=== PATIENT | female | born 1965 | race Caucasian/White ===

== ENCOUNTER → 2017-09-19 | Outpatient (CLI) | payer BC ==
--- NOTE | 2017-09-20 12:08 | MM ---
Reason for exam: screening (asymptomatic). Last mammogram was performed 1 year and 4 months ago. History: Patient is postmenopausal. Family history of breast cancer in mother at age 66. Physical Findings: A clinical breast exam by your physician is recommended on an annual basis and results should be correlated with mammographic findings. MG Screening Mammo w CAD Bilateral CC and MLO view(s) were taken. Prior study comparison: June 01, 2016, bilateral MG 3d screening mammo w/cad. July 01, 2014, bilateral MG screening mammo w CAD. There are scattered fibroglandular densities. No suspicious abnormality. No significant changes when compared with prior studies. ASSESSMENT: Negative, BI-RAD 1 RECOMMENDATION: Routine screening mammogram of both breasts in 1 year.
== END | disposition home or self-care (01) ==
LOC: RADMAMWWP 07:02
PROVIDERS: ATTEND Family Medicine
DX: Z12.31 Encounter for screening mammogram for malignant neoplasm of breast (principal)
CPT/HCPCS: 77067

== ENCOUNTER → 2018-03-16 | Outpatient (CLI) | payer BC ==
[2018-03-16 08:32] LABS: Basophils # (A) 0.1 k/uL (0-0.2); Basophils % (A) 1 %; Eosinophils # (A) 0.1 k/uL (0-0.7); Eosinophils % (A) 2 %; HCT 47.6 % (34.0-46.0); HGB 15.1 gm/dL (11.4-16.0); Lymphocytes # (A) 1.6 k/uL (1.0-4.8); Lymphocytes % (A) 33 %; MCHC 31.8 g/dL (31.0-37.0); MCV 97.5 fL (80.0-100.0); Mean Platelet Volume 7.8; Monocytes # (A) 0.3 k/uL (0-1.0); Monocytes % (A) 6 %; Neutrophils # (A) 2.8 k/uL (1.3-7.7); Neutrophils % (A) 56 %; Platelet Count 236 k/uL (150-450); RBC 4.88 m/uL (3.80-5.40); RDW 13.5 % (11.5-15.5); WBC 4.9 k/uL (3.8-10.6)
[2018-03-16 08:51] LABS: Calcium 9.3 mg/dL (8.4-10.2)
== END | disposition home or self-care (01) ==
LOC: LABWHC1 07:16
PROVIDERS: ATTEND Psychiatry & Neurology Neurology
DX: Z51.81 Encounter for therapeutic drug level monitoring (principal); Z79.899 Other long term (current) drug therapy
CPT/HCPCS: 36415; 80048; 85025

== ENCOUNTER → 2018-05-26 | Outpatient (CLI) | payer BC ==
--- NOTE | 2018-05-26 15:48 | XR ---
EXAMINATION TYPE: XR abdomen 2V DATE OF EXAM: 05/26/2018 3:38 PM CLINICAL HISTORY: Abdominal pain and diarrhea TECHNIQUE: Upright and supine images of the abdomen were obtained. COMPARISON: CT abdomen and pelvis dated 12/03/2015. FINDINGS: There are scattered colonic air-fluid levels within a nondilated colon compatible with this patient's history of colonic malabsorption/diarrhea. Punctate calcifications clustered within the ri ght lower quadrant when correlated with the prior CT are likely within bowel related to inspissated d ebris. Partial colonic resection surgical sutures are noted in the low pelvis. Cholecystectomy clips reside within the right upper quadrant. There is a mild dextroscoliotic curvature of the upper lumbar spine. No pneumoperitoneum is seen. Osseous structures are grossly intact. IMPRESSION: Scattered air-fluid levels within the nondilated colon are indicative of colonic malabsor ption/diarrhea. Nonobstructive bowel gas pattern.
== END | disposition home or self-care (01) ==
LOC: RADXRMAIN 15:01
PROVIDERS: ATTEND Physician Assistant Medical
DX: R19.7 Diarrhea, unspecified (principal); R53.83 Other fatigue; R10.31 Right lower quadrant pain; R14.3 Flatulence
CPT/HCPCS: 74019; 87045; 87046

== ENCOUNTER → 2018-06-02 | Outpatient (CLI) | payer BC ==
[2018-06-02 14:30] LABS: Basophils % (A) 1 %; Eosinophils # (A) 0.1 k/uL (0-0.7); Eosinophils % (A) 2 %; HCT 40.7 % (34.0-46.0); HGB 13.5 gm/dL (11.4-16.0); Lymphocytes # (A) 1.5 k/uL (1.0-4.8); Lymphocytes % (A) 31 %; MCHC 33.1 g/dL (31.0-37.0); MCV 93.9 fL (80.0-100.0); Mean Platelet Volume 7.8; Monocytes # (A) 0.3 k/uL (0-1.0); Monocytes % (A) 6 %; Neutrophils # (A) 2.8 k/uL (1.3-7.7); Neutrophils % (A) 59 %; Platelet Count 234 k/uL (150-450); RBC 4.34 m/uL (3.80-5.40); WBC 4.8 k/uL (3.8-10.6)
[2018-06-02 14:41] LABS: Calcium 9.4 mg/dL (8.4-10.2); Potassium 4.8 mmol/L (3.5-5.1); Total Bilirubin 0.4 mg/dL (0.2-1.3); Total Protein 6.3 g/dL (6.3-8.2)
--- NOTE | 2018-06-02 16:08 | CT ---
EXAMINATION TYPE: CT abdomen pelvis w con DATE OF EXAM: 06/02/2018 COMPARISON: Prior CT abdomen pelvis 12/03/2015 HISTORY: RLQ pain and diarrhea X [address] DLP: 763.7 mGycm Automated exposure control for dose reduction was used. TECHNIQUE: Helical acquisition of images from the lung bases through the pelvis have been completed. CONTRAST: Performed with Oral Contrast and with IV Contrast, patient injected with 100 mL of Isovue 300. FINDINGS: LUNG BASES: No significant abnormality is appreciated. AORTA: No significant abnormality is appreciated. LIVER/GB: Patient is post cholecystectomy. Liver shows no mass. Liver shows low attenuation possibly due to hepatic steatosis. PANCREAS: No significant abnormality is seen. SPLEEN: No significant abnormality is seen. ADRENALS: No significant abnormality is seen. KIDNEYS: No significant abnormality is seen. REPRODUCTIVE ORGANS: Uterus and right ovary not seen, left ovary shows a normal appearance BOWEL: Postop changes at the rectosigmoid colon. Right colon shows some wall thickening. Axial image s #[id number] show a questionable tethered appearance to the lateral wall of an ileal loop corresponding to coronal image 41 and 42. There may be a small appendix at this level with possible small appendicoli th on axial image 69. No significant inflammatory change however. FREE AIR: No Free Air visible. ASCITES: None visible. PELVIC ADENOPATHY: None visualized. RETROPERITONEAL ADENOPATHY: No Retroperitoneal Adenopathy visible. URINARY BLADDER: No significant abnormality is seen. OSSEOUS STRUCTURES: No significant abnormality is seen. IMPRESSION: FINDINGS SUGGEST COLITIS. DIFFICULT TO EXCLUDE A TETHERED APPEARANCE EXTENDING FROM THE LEVEL OF THE APPENDIX TO AN ILEAL LOOP DESCRIBED POSSIBLY DUE TO ADHESIVE DISEASE. POSTOP CHANGES.
== END | disposition home or self-care (01) ==
LOC: RADCTMAIN 13:25
PROVIDERS: ATTEND Family Medicine
DX: R10.31 Right lower quadrant pain (principal); R19.4 Change in bowel habit; R19.7 Diarrhea, unspecified; Z90.49 Acquired absence of other specified parts of digestive tract
CPT/HCPCS: 80053; 85025; 74177; Q9967

== ENCOUNTER → 2018-07-24 | Outpatient (CLI) | payer BC ==
--- NOTE | 2018-07-24 15:48 | XR ---
EXAMINATION TYPE: XR nasal bone DATE OF EXAM: 07/24/2018 COMPARISON: Facial bones complete November 01, 2013 HISTORY: Acute nasal bone trauma, pain after injury. TECHNIQUE: Complete nasal bone with both lateral projections on frontal projection acquired. FINDINGS: Age-indeterminate fracture through the nasal bridge is identified on lateral view without s ignificant soft tissue swelling. Nasal septum remains deviated to right of midline. Visualized parana griffin sinuses are clear. IMPRESSION: Age-indeterminate but favor old displaced fracture through the nasal bridge.
== END | disposition home or self-care (01) ==
LOC: RADXRMAIN 15:19
PROVIDERS: ATTEND Otolaryngology
DX: G89.11 Acute pain due to trauma (principal)
CPT/HCPCS: 70160

== ENCOUNTER → 2018-11-14 | Outpatient (CLI) | payer BC ==
--- NOTE | 2018-11-16 10:33 | MM ---
Reason for exam: screening (asymptomatic). Last mammogram was performed 1 year and 2 months ago. History: Patient is postmenopausal. Family history of breast cancer in mother at age 66. Physical Findings: A clinical breast exam by your physician is recommended on an annual basis and results should be correlated with mammographic findings. MG Screening Mammo w CAD Bilateral CC and MLO view(s) were taken. Prior study comparison: September 19, 2017, bilateral MG screening mammo w CAD. June 01, 2016, bilateral MG 3d screening mammo w/cad. There are scattered fibroglandular densities. Focal asymmetry left upper outer quadrant. No significant changes when compared with prior studies. ASSESSMENT: Benign, BI-RAD 2 RECOMMENDATION: Routine screening mammogram of both breasts in 1 year.
== END | disposition home or self-care (01) ==
LOC: RADMAMWWP 07:55
PROVIDERS: ATTEND Family Medicine
DX: Z12.31 Encounter for screening mammogram for malignant neoplasm of breast (principal)
CPT/HCPCS: 77067

== ENCOUNTER → 2019-12-28 | Outpatient (CLI) | payer BC ==
--- NOTE | 2020-01-01 08:59 | CT ---
EXAMINATION TYPE: CT heart w calcium score DATE OF EXAM: 12/28/2019 COMPARISON: None HISTORY: Screening for cardiovascular disorder. 213.9 CT DLP: 44.8 mGycm Automated exposure control for dose reduction was used. CT CALCIUM SCORING Coronary calcium is a marker for plaque (fatty deposits) in a blood vessel or atherosclerosis (harden ing of the arteries). The presence and amount of calcium detected in a coronary artery by the CT sca n, indicates the presence and amount of atherosclerotic plaque. These calcium deposits appear years before the development of heart disease symptoms such as chest pain and shortness of breath. A calcium score is computed for each of the coronary arteries based upon the volume and density of th e calcium deposits. This can be referred to as your calcified plaque burden. It does not correspond directly to the percentage of narrowing in the artery but does correlate with the severity of the un derlying coronary atherosclerosis. PROCEDURE TECHNIQUE - Prospective Gating was used. Slice thickness: 3mm. Density threshold (HU): 130, Pixel threshold: 3, Algorithm: discrete. RESULTS Region: LM Calcium Score ([place]): 0 Volume (mm3): Mass (g): Region: RCA Calcium Score ([place]): 0 Volume (mm3): Mass (g): Region: LAD Calcium Score ([place]): 0 Volume (mm3): Mass (g): Region: CX Calcium Score ([place]): 0 Volume (mm3): Mass (g): Region: PDA Calcium Score ([place]): 0 Volume (mm3): Mass (g): Total: Calcium Score ([place]): 0 Volume (mm3): Mass (g): TOTAL CALCIUM SCORE: 0 IMPRESSION: Calcium Score: 0 Implication: No identifiable plaque. Risk of Coronary Artery Disease: Very low CALCIUM SCORE IMPLICATION RISK OF C ORONARY ARTERY DISEASE 0 No identifiable plaque Very low, generally less than 5% 1-10 Minimal identifiable plaque Very unlikely, less than 10% 11-100 Definite, at least mild atherosclerotic plaque Mild or m inimal coronary narrowings likely 101-400 Definite, at least moderate atherosclerotic plaque Mild coronary ar jud disease highly likely, significant narrowing possible 401 or Higher Extensive atherosclerotic plaque High lik elihood of at least one significant coronary narrowing
== END | disposition home or self-care (01) ==
LOC: RADCTMAIN 16:44
PROVIDERS: ATTEND Family Medicine
DX: I10 Essential (primary) hypertension (principal); E78.5 Hyperlipidemia, unspecified; Z82.49 Family history of ischemic heart disease and other diseases of the circulatory system
CPT/HCPCS: 75571

== ENCOUNTER → 2020-01-31 | Outpatient (CLI) | payer BC ==
--- NOTE | 2020-02-01 08:49 | MM ---
Reason for exam: screening (asymptomatic). Last mammogram was performed 1 year and 3 months ago. History: Patient is postmenopausal. Family history of breast cancer in mother at age 66. Physical Findings: A clinical breast exam by your physician is recommended on an annual basis and results should be correlated with mammographic findings. MG Screening Mammo w CAD Bilateral CC and MLO view(s) were taken. Prior study comparison: November 14, 2018, bilateral MG screening mammo w CAD. September 19, 2017, bilateral MG screening mammo w CAD. There are scattered fibroglandular densities. There is chronic nodularity in the lerft breast. No significant changes when compared with prior studies. ASSESSMENT: Negative, BI-RAD 1 RECOMMENDATION: Routine screening mammogram of both breasts in 1 year.
== END | disposition home or self-care (01) ==
LOC: RADMAMWWP 07:19
PROVIDERS: ATTEND Family Medicine
DX: Z12.31 Encounter for screening mammogram for malignant neoplasm of breast (principal)
CPT/HCPCS: 77067

== ENCOUNTER → 2022-05-21 | Outpatient (CLI) | payer BC ==
[2022-05-21 15:12] VITALS: BP 152/96; PULSE 88; RESP 16; TEMP 97.6
--- NOTE | 2022-05-21 15:52 | P.GSHP ---
History of Present Illness H&P Date: 05/21/22 Chief Complaint: intraductal papilloma left breast 3:30 Oriana is a 57 year old white female who underwent an untrasound guided core biopsy on February 2022 of the left breast at 3:30 on 04-06-22 which revealed an intraductal papilloma. She had a bilateral screening mammogram performed March 30 2022, which led to an ultrasound guided core biopsy on 04-06-22. Patient did not feel any lumps masses or nodules of concern in either breast. She is not complaining of any nipple discharge or skin changes. She had not had any surgery on her breast in the past. Caffiene: 2 cups coffee/day nicotine: none stopped 20 years ago; used to smoke 1/2 PPD chocolate: weekly BCP: 4-5 years in the past Family History: mother: breast cancer at 65 Hormonal History: menarche: 10 , breast fed: yes, age at first : 20 menopause: hysterectomy in her 30's; left 1 ovary Surgical History: hysterectomy colon Resection gallbladder sinus surgery Medical History: HTN migraine Social History: nicotine: as above alcohol: stopped drinking beer drugs: none - Constitutional Constitutional: Denies chills, Denies fever - EENT Eyes: denies blurred vision, denies pain Ears: deny: decreased hearing, tinnitus Ears, nose, mouth and throat: Denies headache, Denies sore throat - Breasts Breasts: bilateral: as per HPI - Cardiovascular Cardiovascular: Denies chest pain, Denies shortness of breath - Respiratory Respiratory: Denies cough, Denies 7 - Gastrointestinal Gastrointestinal: Reports as per HPI - Genitourinary (Female) Genitourinary: Denies dysuria, Denies hematuria - Menstruation Menstruation: Reports post hysterectomy - Musculoskeletal Musculoskeletal: Denies myalgias - Integumentary Integumentary: Denies pruritus, Denies rash - Neurological Neurological: Denies numbness, Denies weakness - Psychiatric Psychiatric: Denies anxiety, Denies depression - Endocrine Endocrine: Denies fatigue, Denies weight change - Hematologic/Lymphatic Comment: none - Allergic/Immunologic Allergic/Immunologic: Reports seasonal allergies Past Medical History Past Medical History: Asthma, GERD/Reflux, Hypertension Additional Past Medical History / Comment(s): migraines, KIDNEY STONE History of Any Multi-Drug Resistant Organisms: None Reported Past Surgical History: Appendectomy, Bowel Resection, Hysterectomy Additional Past Surgical History / Comment(s): NASAL SURGERY Past Anesthesia/Blood Transfusion Reactions: No Reported Reaction Past Psychological History: No Psychological Hx Reported Smoking Status: Former smoker Past Alcohol Use History: Occasional Past Drug Use History: None Reported - Past Family History Mother Family Medical History: Cancer Medications and Allergies Home Medications Medication Instructions Recorded Confirmed Type Cyclobenzaprine [Flexeril] 10 mg PO HS 11/06/13 05/21/22 History Fluticasone Propionate [Flovent 1 puff INHALATION DAILY 11/06/13 05/21/22 History Hfa 220 mcg] Cetirizine HCl 1 tab PO DAILY 11/08/13 05/21/22 History Multivitamins, Thera [Theragran] 1 each PO DAILY 02/19/15 05/21/22 History [place]-3 Fatty Acids/Fish Oil [Fish 1 each PO DAILY 02/19/15 05/21/22 History Oil 1,000 mg Softgel] Omeprazole [PriLOSEC] 20 mg PO AC-BRKFST 02/19/15 05/21/22 History Topiramate [Topamax] 50 mg PO BID 02/19/15 05/21/22 History lisinopriL [Zestril] 10 mg PO DAILY 02/19/15 05/21/22 History Allergies Allergy/AdvReac Type Severity Reaction Status Date / Time No Known Allergies Allergy Verified 05/21/22 15:13 Surgical - Exam Vital Signs Temp Pulse Resp BP Pulse Ox 97.6 F 88 16 152/96 100 05/21/22 15:10 05/21/22 15:10 05/21/22 15:10 05/21/22 15:10 05/21/22 15:10 BMi: 26.6 - General moderate distress - Eyes normal ocular movement - ENT no hearing loss - Neck trachea midline - Respiratory normal respiratory effort, clear to auscultation - Cardiovascular Rhythm: regular Heart Sounds: normal: S1, S2 - Abdomen Abdomen: soft, non tender, no guarding, no rigid, no rebound - Integumentary normal turgor - Neurologic no disoriented, no combative - Musculoskeletal normal gait, normal posture - Psychiatric oriented to time, oriented to person, oriented to place, speech is normal, memory intact Breast Exam: BRA: 38DD inspection: bilateral grade 2/3 ptosis palpation: right breast: multipositional exam no dominate masses or nodules of concern; dark nevis right breast right axilla: no adenopathy of concern left breast: multipositional exam no dominate masses or nodules of concern; Results Mammogram and ultrasound results reviewed Assessment and Plan Assessment: Impression: Intraductal papilloma left breast 3:30 position Fibrocystic breast changes Dark nevus of right breast 9 o'clock position Plan: Needle localization excisional lumpectomy left breast, possible optical plastic tissue transfer, excision of dark nevus right breast Risk and benefits of the procedure discussed with the patient. She understands and wishes to proceed. This will be scheduled in the near future. CC: DR. Don Sparks
== END ==
LOC: WWCWWP 14:51
PROVIDERS: ATTEND Surgery
DX: D05.12 Intraductal carcinoma in situ of left breast (principal); N60.19 Diffuse cystic mastopathy of unspecified breast; D22.5 Melanocytic nevi of trunk; Z87.891 Personal history of nicotine dependence

== ENCOUNTER → 2022-06-25 | Outpatient (CLI) | payer BC ==
[2022-06-25 15:43] VITALS: BP 136/83; PULSE 96; RESP 16
--- NOTE | 2022-06-25 16:51 | P.PN ---
Subjective Progress Note Date: 06/25/22 Principal diagnosis: intraductal papilloma left breast 3:30 Oriana is a 57 year old white female who underwent an untrasound guided core biopsy on February 2022 of the left breast at 3:30 on 04-06-22 which revealed an intraductal papilloma. She had a bilateral screening mammogram performed March 30 2022, which led to an ultrasound guided core biopsy on 04-06-22. Patient did not feel any lumps masses or nodules of concern in either breast. She is not complaining of any nipple discharge or skin changes. She had not had any surgery on her breast in the past. Mammogram reviewed with radiology. Caffiene: 2 cups coffee/day nicotine: none stopped 20 years ago; used to smoke 1/2 PPD chocolate: weekly BCP: 4-5 years in the past Family History: mother: breast cancer at 65 Hormonal History: menarche: 10 , breast fed: yes, age at first : 20 menopause: hysterectomy in her 30's; left 1 ovary Surgical History: hysterectomy colon Resection gallbladder sinus surgery Medical History: HTN migraine Social History: nicotine: as above alcohol: stopped drinking beer drugs: none - Constitutional Constitutional: Denies chills, Denies fever - EENT Eyes: denies blurred vision, denies pain Ears: deny: decreased hearing, tinnitus Ears, nose, mouth and throat: Denies headache, Denies sore throat - Breasts Breasts: bilateral: as per HPI - Cardiovascular Cardiovascular: Denies chest pain, Denies shortness of breath - Respiratory Respiratory: Denies cough - Gastrointestinal Gastrointestinal: Reports as per HPI - Genitourinary (Female) Genitourinary: Denies dysuria, Denies hematuria - Menstruation Menstruation: Reports post hysterectomy - Musculoskeletal Musculoskeletal: Denies myalgias - Integumentary Integumentary: Denies pruritus, Denies rash - Neurological Neurological: Denies numbness, Denies weakness - Psychiatric Psychiatric: Denies anxiety, Denies depression - Endocrine Endocrine: Denies fatigue, Denies weight change - Hematologic/Lymphatic Comment: none - Allergic/Immunologic Allergic/Immunologic: Reports seasonal allergies Past Medical History Past Medical History: Asthma, GERD/Reflux, Hypertension Additional Past Medical History / Comment(s): migraines, KIDNEY STONE History of Any Multi-Drug Resistant Organisms: None Reported Past Surgical History: Appendectomy, Bowel Resection, Hysterectomy Additional Past Surgical History / Comment(s): NASAL SURGERY Past Anesthesia/Blood Transfusion Reactions: No Reported Reaction Past Psychological History: No Psychological Hx Reported Smoking Status: Former smoker Past Alcohol Use History: Occasional Past Drug Use History: None Reported - Past Family History Mother Family Medical History: Cancer Medications and Allergies Home Medications Medication Instructions Recorded Confirmed Type Cyclobenzaprine [Flexeril] 10 mg PO HS 11/06/13 05/21/22 History Fluticasone Propionate [Flovent 1 puff INHALATION DAILY 11/06/13 05/21/22 History Hfa 220 mcg] Cetirizine HCl 1 tab PO DAILY 11/08/13 05/21/22 History Multivitamins, Thera [Theragran] 1 each PO DAILY 02/19/15 05/21/22 History [place]-3 Fatty Acids/Fish Oil [Fish 1 each PO DAILY 02/19/15 05/21/22 History Oil 1,000 mg Softgel] Omeprazole [PriLOSEC] 20 mg PO AC-BRKFST 02/19/15 05/21/22 History Topiramate [Topamax] 50 mg PO BID 02/19/15 05/21/22 History lisinopriL [Zestril] 10 mg PO DAILY 02/19/15 05/21/22 History Allergies Allergy/AdvReac Type Severity Reaction Status Date / Time No Known Allergies Allergy Verified 05/21/22 15:13 Objective - Vital Signs Vital signs: Vital Signs Temp Pulse 96 06/25/22 15:39 Resp 16 06/25/22 15:39 BP 136/83 06/25/22 15:39 Pulse Ox 98 06/25/22 15:39 FiO2 Intake & Output 06/24/22 06/25/22 06/25/22 18:59 06:59 18:59 Weight 71.668 kg - Constitutional General appearance: Present: cooperative - EENT ENT: Present: hearing grossly normal - Neck Neck: Present: normal ROM - Respiratory Respiratory: bilateral: CTA - Cardiovascular Rhythm: regular Heart sounds: normal: S1, S2 - Gastrointestinal General gastrointestinal: Present: soft - Integumentary Integumentary: Present: normal turgor - Musculoskeletal Musculoskeletal: Present: gait normal - Psychiatric Psychiatric: Present: A&O x's 3, appropriate affect, intact judgment & insight - Additional findings Additional findings: Breast Exam: BRA: 38DD inspection: bilateral grade 2/3 ptosis palpation: right breast: multipositional exam no dominate masses or nodules of concern; dark nevis right breast right axilla: no adenopathy of concern left breast: multipositional exam no dominate masses or nodules of concern; Assessment and Plan Assessment: Impression: Intraductal papilloma left breast 3:30 position Fibrocystic breast changes Dark nevus of right breast 9 o'clock position Plan: Needle localization excisional lumpectomy left breast, possible onco-plastic tissue transfer, excision of dark nevus right breast Risk and benefits of the procedure discussed with the patient. She understands and wishes to proceed. This will be scheduled in the near future. No mastopexy incision. [place] prescribed CC: DR. Don Sparks
== END ==
LOC: WWCWWP 15:08
PROVIDERS: ATTEND Surgery
DX: D24.2 Benign neoplasm of left breast (principal); J45.909 Unspecified asthma, uncomplicated; K21.9 Gastro-esophageal reflux disease without esophagitis; I10 Essential (primary) hypertension; Z87.891 Personal history of nicotine dependence; Z79.51 Long term (current) use of inhaled steroids

== ENCOUNTER 2022-07-13 11:53 | Day surgery (SDC) | payer BC ==
[~2022-07-13 11:53] MED LIST: HEPARIN SODIUM,PORCINE/PF 5,000 UNIT/0.5 ML SYRINGE SQ PRN; Pre Op ABX Message 1 EACH MISC MISCELLANE ONE
[2022-07-13] MEDS ORDERED: HYDROmorphone 0.5 MG/0.5 ML SYRINGE IVP PRN (12:21)
[2022-07-13] MEDS ORDERED: SCOPOLAMINE 1 MG/72 HR PATCH TRANSDERM ONE (12:21)
[2022-07-13] MEDS ORDERED: MIDAZOLAM 2 MG/2 ML VIAL IV PRN (12:21)
[2022-07-13] MEDS ORDERED: ONDANSETRON 4 MG/2 ML VIAL IVP ONE ×2 (12:21→18:21)
[2022-07-13] MEDS ORDERED: DEXAMETHASONE SOD PHOSPHATE 4 MG/ML 1 ML VIAL IV ONE (12:21)
[2022-07-13] MEDS ORDERED: LACTATED RINGERS 1,000 ML IV SCH (12:21)
[2022-07-13] MEDS ORDERED: LIDOCAINE 1% INJ 10MG/ML (5 ML VIAL-PF) SQ ONE (13:06)
[2022-07-13] MEDS ORDERED: fentaNYL (PF) 50 MCG/ML 2 ML AMP ONE (16:30)
[2022-07-13] MEDS ORDERED: MIDAZOLAM 2 MG/2 ML VIAL ONE (16:30)
[2022-07-13] MEDS ORDERED: LIDOCAINE 2% INJ 20 MG/ML (2 ML VIAL) ONE (16:30)
[2022-07-13] MEDS ORDERED: PROPOFOL 10 MG/ML 20 ML VIAL IV ONE (16:30)
[2022-07-13] MEDS ORDERED: LACTATED RINGERS 1,000 ML IV ONE (16:54)
--- NOTE | 2022-07-13 17:21 | P.OP ---
Date of Procedure: 07/13/22 Preoperative Diagnosis: Intraductal papilloma left breast, dark nevus right breast Postoperative Diagnosis: Same Procedure(s) Performed: Needle localization lumpectomy left breast, excision nevus right breast Anesthesia: JANUSZ Surgeon: Tawnya Reno Estimated Blood Loss (ml): 3 IV fluids (ml): 500 Pathology: other (Left breast tissue, right breast skin lesion) Condition: stable Disposition: same day Indications for Procedure: Intraductal papilloma left breast, dark nevus right breast Operative Findings: Fibrofatty breast tissue Description of Procedure: The area of concern in the left breast was localized in the radiology department. She was then brought to the operative suite. Following induction of anesthesia both breasts were prepped and draped in a sterile fashion. The left breast was approached initially. An incision was made and the tissues surrounding the needle was excised. The wound was well irrigated. Titanium clips were placed. The lesion was painted for orientation. Radiographic of the lesion revealed that the area of concern had been removed. After we were assured that hemostasis was attained deep 3-0 Vicryl sutures were placed. This was followed by a 4-0 subcuticular Monocryl skin suture. The area of the right breast was approached. Excisional biopsy of a 5 mm nevus was performed. The deep tissues were closed using a Vicryl suture. The skin was closed using a 4-0 nylon suture. The patient tolerated the procedure in stable condition. All instrument and sponge counts were correct at the end of the case. The patient will follow-up with Dr. Khanna in 1 week.
--- NOTE | 2022-07-13 17:23 | P.DS ---
Providers Attending physician: Tawnya Reno Primary care physician: Physician Nonstaff Plan - Discharge Summary Discharge Rx Participant: Yes New Discharge Prescriptions: No Action Cyclobenzaprine [Flexeril] 10 mg PO HS Fluticasone Propionate [Flovent Hfa 220 mcg] 1 puff INHALATION DAILY Cetirizine HCl 10 mg PO DAILY Topiramate [Topamax] 50 mg PO BID Multivitamins, Thera [Theragran] 1 each PO DAILY Sertraline [Zoloft] 50 mg PO DAILY Losartan Potassium [Cozaar] 50 mg PO DAILY Atorvastatin [Lipitor] 20 mg PO HS Discharge Medication List Cyclobenzaprine [Flexeril] 10 mg PO HS 11/06/13 [History] Fluticasone Propionate [Flovent Hfa 220 mcg] 1 puff INHALATION DAILY 11/06/13 [History] Cetirizine HCl 10 mg PO DAILY 11/08/13 [History] Multivitamins, Thera [Theragran] 1 each PO DAILY 02/19/15 [History] Topiramate [Topamax] 50 mg PO BID 02/19/15 [History] Atorvastatin [Lipitor] 20 mg PO HS 07/07/22 [History] Losartan Potassium [Cozaar] 50 mg PO DAILY 07/07/22 [History] Sertraline [Zoloft] 50 mg PO DAILY 07/07/22 [History] Follow up Appointment(s)/Referral(s): Tawnya Reno MD [STAFF PHYSICIAN] - 07/21/22 12:20 pm Activity/Diet/Wound Care/Special Instructions: do not drive for 24 hours after discharge do not drive if taking narcotic pain medicine may shower after 48hours wear bra at all times until seen by Dr. Khanna unless showering Discharge Disposition: HOME SELF-CARE
[2022-07-13 17:29] VITALS: TEMP 97.4
[2022-07-13] MEDS ORDERED: HYDROcodone/APAP 5-325MG 1 EACH TAB ONE (18:21)
[2022-07-13] MEDS ORDERED: ONDANSETRON 4 MG/2 ML VIAL ONE (18:21)
[2022-07-13 18:52] VITALS: BP 135/82; PULSE 88; RESP 16
== END 2022-07-13 19:09 | disposition home or self-care (01) ==
LOC: OR 11:53
PROVIDERS: ATTEND Surgery
DX: D24.2 Benign neoplasm of left breast (principal); D22.5 Melanocytic nevi of trunk
CPT/HCPCS: 19281; C1819; J1100; J2405; J2001; J1644; 76098

== ENCOUNTER → 2022-07-21 | Outpatient (CLI) | payer BC ==
--- NOTE | 2022-07-21 13:11 | P.PN ---
Progress Note - Text Progress Note Date: 07/21/22 Oriana is a 57 female status post needle local excisional biopsy of left breast lesion which revealed an intraductal papilloma. On the right that she had a skin lesion removed which was a dysplastic compound nevus with mild atypia. She tolerated the procedures without difficulty. Examination: Left breast: Incision clean and dry Right breast incision clean and dry sutures are in place Plan: Left breast mammogram in 6 months with physician exam at that time Sutures in the right breast will remain until next week and patient will follow with dermatology CC: Dr. Sparks
== END ==
LOC: WWCWWP 12:12
PROVIDERS: ATTEND Surgery
DX: D05.12 Intraductal carcinoma in situ of left breast (principal); D48.5 Neoplasm of uncertain behavior of skin; Z87.891 Personal history of nicotine dependence

== ENCOUNTER → 2023-01-12 | Outpatient (CLI) | payer BC | END | disposition home or self-care (01) | LOC: RADMAMWWP 09:40 | PROVIDERS: ATTEND Surgery | DX: Z53.9 Procedure and treatment not carried out, unspecified reason (principal) ==

== ENCOUNTER → 2023-01-12 | Outpatient (CLI) | payer BC ==
[2023-01-12 10:31] VITALS: BP 148/91; PULSE 95; RESP 13; TEMP 98.4
--- NOTE | 2023-01-12 10:58 | P.PN ---
Subjective Progress Note Date: 01/12/23 Principal diagnosis: intraductal papilloma left breast ntraductal papilloma left breast 3:30 Oriana is a 58 year old white female who underwent an untrasound guided core biopsy on February 2022 of the left breast at 3:30 on 04-06-22 which revealed an intraductal papilloma. She had a bilateral screening mammogram performed March 30 2022, which led to an ultrasound guided core biopsy on 04-06-22. Patient did not feel any lumps masses or nodules of concern in either breast. She is not complaining of any nipple discharge or skin changes. She had not had any surgery on her breast in the past. She had resection of the papilloma on 07-13-22. A right breast mammogram was done on 01-12-23 and verbal report BIRAD 2. Not complaining of any new lumps masses or nodules in either breast. Mammogram reviewed with radiology. Caffiene: 2 cups coffee/day nicotine: none stopped 20 years ago; used to smoke 1/2 PPD chocolate: weekly BCP: 4-5 years in the past Family History: mother: breast cancer at 65 Hormonal History: menarche: 10 , breast fed: yes, age at first : 20 menopause: hysterectomy in her 30's; left 1 ovary Surgical History: hysterectomy colon Resection gallbladder sinus surgery Medical History: HTN migraine Social History: nicotine: as above alcohol: stopped drinking beer drugs: none - Constitutional Constitutional: Denies chills, Denies fever - EENT Eyes: denies blurred vision, denies pain Ears: deny: decreased hearing, tinnitus Ears, nose, mouth and throat: Denies headache, Denies sore throat - Breasts Breasts: bilateral: as per HPI - Cardiovascular Cardiovascular: Denies chest pain, Denies shortness of breath - Respiratory Respiratory: Denies cough - Gastrointestinal Gastrointestinal: Reports as per HPI - Genitourinary (Female) Genitourinary: Denies dysuria, Denies hematuria - Menstruation Menstruation: Reports post hysterectomy - Musculoskeletal Musculoskeletal: Denies myalgias - Integumentary Integumentary: Denies pruritus, Denies rash - Neurological Neurological: Denies numbness, Denies weakness - Psychiatric Psychiatric: Denies anxiety, Denies depression - Endocrine Endocrine: Denies fatigue, Denies weight change - Hematologic/Lymphatic Comment: none - Allergic/Immunologic Allergic/Immunologic: Reports seasonal allergies Past Medical History Past Medical History: Asthma, GERD/Reflux, Hypertension Additional Past Medical History / Comment(s): migraines, KIDNEY STONE History of Any Multi-Drug Resistant Organisms: None Reported Past Surgical History: Appendectomy, Bowel Resection, Hysterectomy Additional Past Surgical History / Comment(s): NASAL SURGERY Past Anesthesia/Blood Transfusion Reactions: No Reported Reaction Past Psychological History: No Psychological Hx Reported Smoking Status: Former smoker Past Alcohol Use History: Occasional Past Drug Use History: None Reported - Past Family History Mother Family Medical History: Cancer Medications and Allergies Home Medications Medication Instructions Recorded Confirmed Type Cyclobenzaprine [Flexeril] 10 mg PO HS 11/06/13 05/21/22 History Fluticasone Propionate [Flovent 1 puff INHALATION DAILY 11/06/13 05/21/22 History Hfa 220 mcg] Cetirizine HCl 1 tab PO DAILY 11/08/13 05/21/22 History Multivitamins, Thera [Theragran] 1 each PO DAILY 02/19/15 05/21/22 History Clute-3 Fatty Acids/Fish Oil [Fish 1 each PO DAILY 02/19/15 05/21/22 History Oil 1,000 mg Softgel] Omeprazole [PriLOSEC] 20 mg PO AC-[id number] 02/19/15 05/21/22 History Topiramate [Topamax] 50 mg PO BID 02/19/15 05/21/22 History lisinopriL [Zestril] 10 mg PO DAILY 02/19/15 05/21/22 History Allergies Allergy/AdvReac Type Severity Reaction Status Date / Time No Known Allergies Allergy Verified 05/21/22 15:13 Objective - Vital Signs Vital signs: Vital Signs Temp 98.4 F 01/12/23 10:27 Pulse 95 01/12/23 10:27 Resp 13 01/12/23 10:27 BP 148/91 01/12/23 10:27 Pulse Ox 99 01/12/23 10:27 FiO2 Intake & Output 01/11/23 01/12/23 01/12/23 18:59 06:59 18:59 Weight 71.668 kg - Constitutional General appearance: Present: cooperative - EENT Eyes: Present: EOMI ENT: Present: hearing grossly normal - Neck Neck: Present: normal ROM - Respiratory Respiratory: bilateral: CTA - Cardiovascular Rhythm: regular Heart sounds: normal: S1, S2 - Integumentary Integumentary: Present: normal turgor - Musculoskeletal Musculoskeletal: Present: gait normal - Psychiatric Psychiatric: Present: A&O x's 3, appropriate affect, intact judgment & insight - Additional findings Additional findings: Breast Exam: BRA: 38DD inspection: bilateral grade 2/3 ptosis; right breast larger than left breast palpation: right breast: multipositional exam no dominate masses or nodules of concern; right axilla: no adenopathy of concern left breast: multipositional exam no dominate masses or nodules of concern; post op changes left axilla: no adenopathy of concern Assessment and Plan Assessment: Impression: Bilateral fibrocystic breast changes Repeat right breast mammogram 12812 verbal biomed to awaiting final report Plan: Bilateral mammogram in 6 months with physician exam at that time If the right breast mammogram report is different we will document this Patient to follow up sooner any questions or concerns CC: Dr. Sparks
--- NOTE | 2023-01-12 11:05 | MM ---
Reason for Exam: Follow-up at short interval from prior study. Last mammogram was performed 2 year(s) and 11 month(s) ago. Patient History: Menarche at age 10. First Full-Term at age 20. Right ovary removed at age 35. Hysterectomy at age 35. Postmenopausal. Previous Hyperplasia w/o Atypia at age 57. 07/13/2022, Lumpectomy on the Left side. 07/13/2022, Benign MG pre op needle loc LT on the left side. Mother had breast cancer, age 66. Risk Values: Elizabeth 5 year model risk: 3.2%. NCI Lifetime model risk: 15.8%. Tissue Density: There are scattered fibroglandular densities. Findings: Analyzed By CAD. Postprocedural changes left breast. No new suspicious masses, calcifications or distortions. Overall Assessment: Benign, BI-RAD 2 Management: Screening Mammogram of both breasts in 1 year. Results were given to the patient verbally at the time of exam. Patient should continue monthly self-breast exams. A clinical breast exam by your physician is recommended on an annual basis. This exam should not preclude additional follow-up of suspicious palpable abnormalities. Note on Elizabeth scores and lifetime risk: 1. A Elizabeth score greater than 3% is considered moderate risk. If this is the case, consider specialist referral to assess eligibility for a risk reducing agent. 2. If overall lifetime risk for the development of breast cancer is 20% or higher, the patient may qualify for future screening with alternating mammogram and breast MRI. Electronically signed and approved by: Shahram Fajardo DO
== END ==
LOC: WWCWWP 09:32
PROVIDERS: ATTEND Surgery
DX: R92.8 Other abnormal and inconclusive findings on diagnostic imaging of breast (principal); I10 Essential (primary) hypertension; J45.909 Unspecified asthma, uncomplicated; K21.9 Gastro-esophageal reflux disease without esophagitis; N60.11 Diffuse cystic mastopathy of right breast; N60.12 Diffuse cystic mastopathy of left breast; Z78.0 Asymptomatic menopausal state; Z79.51 Long term (current) use of inhaled steroids; Z80.3 Family history of malignant neoplasm of breast; Z87.442 Personal history of urinary calculi; Z87.891 Personal history of nicotine dependence; Z90.49 Acquired absence of other specified parts of digestive tract; Z90.710 Acquired absence of both cervix and uterus; Z90.721 Acquired absence of ovaries, unilateral
CPT/HCPCS: 77062; 77066